=== PATIENT | female | born 1950 | race Caucasian/White ===

== ENCOUNTER 2020-01-27 08:07 | Outpatient (CLI) | payer MEDICARE, OTHER, SELFPAY ==
--- NOTE | ~2020-01-27 | MM_ITS ---
EXAMINATION: MM screening shaggy BI w dann HISTORY: Screening TECHNIQUE: Craniocaudal and mediolateral oblique 3-D tomosynthesis images were obtained and synthetic 2-D images were generated. CAD analysis was submitted and interpreted. COMPARISON: Comparison to multiple prior studies sequentially, with oldest reviewed study dated 04/2014. BREAST PARENCHYMAL COMPOSITION: There are scattered areas of fibroglandular density. FINDINGS: There is no evidence of suspicious mass, calcification, or architectural distortion to sugg est malignancy in either breast. There has been no suspicious interval change. IMPRESSION: 1. No mammographic evidence of malignancy. 2. Recommend routine screening mammography in one year. BI-RADS Category 1: Negative Reviewed, dictated and finalized at location A.
== END 2020-01-27 08:08 | disposition home or self-care (01) ==
LOC: ANHIMG 08:15
PROVIDERS: PCP Internal Medicine; Visit Provider Obstetrics & Gynecology Gynecology
DX: Z12.31 Encounter for screening mammogram for malignant neoplasm of breast (principal)
CPT/HCPCS: 77063; 77067

== ENCOUNTER → 2021-01-01 09:02 | Outpatient (CLI) | payer MEDICARE, OTHER, SELFPAY ==
--- NOTE | ~2021-01-01 | DEXA_ITS ---
Bone Density Report Name: Sameera Lima Age: 70 Sex: Female Ethnicity: White Date of : 1950 Indication: postmenopausal; screening for osteoporosis; Referring Provider: Abhishek, Vonnie Study: Bone densitometry was performed. Exam Date: January 01, 2021 Accession number: [id number] Bone Density: Region BMD T-score Z-score Classification AP Spine (L1-L4) 0.973 -0.7 1.6 Normal Femoral Neck (Left) 0.740 -1.0 0.9 Normal Total Hip (Left) 0.925 -0.1 1.5 Normal Femoral Neck (Right) 0.755 -0.8 1.1 Normal Total Hip (Right) 0.885 -0.5 1.2 Normal Total Hip Mean 0.905 -0.3 1.4 Normal World Health Organization criteria for BMD impression classify patients as: Normal (T-score at or above -1.0), Osteopenia (T-score between -1.0 and -2.5), or Osteoporosis (T-score at or below -2.5). 10-year Fracture Risk: FRAX not reported because: All T-scores for Spine Total, Hip Total, Femoral Neck at or above -1.0 Previous Exams: Region Exam Age BMD T-score BMD Change BMD Change Date g/cm2 vs Baseline vs Previous AP Spine(L1-L4) 01/01/2021 70 0.973 -0.7 -0.061* 0.010 12/30/2017 67 0.963 -0.8 -0.072* -0.043* 12/08/2013 63 1.005 -0.4 -0.029* 0.028* 10/31/2010 59 0.978 -0.6 -0.056* -0.025* 09/11/2007 56 1.002 -0.4 -0.032* -0.032* 08/30/2005 54 1.034 -0.1 Total Hip(Left) 01/01/2021 70 0.925 -0.1 -0.035* -0.001 12/30/2017 67 0.925 -0.1 -0.035* 0.009 12/08/2013 63 0.916 -0.2 -0.044* 0.032* 10/31/2010 59 0.884 -0.5 -0.077* -0.016 09/11/2007 56 0.900 -0.3 -0.061* -0.061* 08/30/2005 54 0.960 0.2 Total Hip(Right) 01/01/2021 70 0.885 -0.5 -0.069* -0.017 12/30/2017 67 0.902 -0.3 -0.052* -0.004 12/08/2013 63 0.906 -0.3 -0.048* 0.002 10/31/2010 59 0.904 -0.3 -0.050* -0.009 09/11/2007 56 0.913 -0.2 -0.041* -0.041* 08/30/2005 54 0.954 0.1 *Denotes significance at 95% confidence level, LSC for AP Spine = 0.022 g/cm2, LSC for Total Hip = 0.027 g/cm2 Clinical Information Provided by Patient: Has 3 or more alcoholic drinks per day Has used the following medications: Vitamin D Patient maximum height was 63 Menopause Age: 52 Does not regularly consume dairy products Drinks caffeinated beverages On
== END ==
PROVIDERS: PCP Internal Medicine; Visit Provider Nurse Practitioner
DX: Z78.0 Asymptomatic menopausal state (principal)
CPT/HCPCS: 77080

== ENCOUNTER 2021-01-18 09:16 | Outpatient (CLI) | payer MEDICARE, OTHER, SELFPAY ==
--- NOTE | ~2021-01-18 | MM_ITS ---
EXAMINATION: MM screening [facility] BI w dann HISTORY: Screening mammogram TECHNIQUE: Craniocaudal and mediolateral oblique 3-D tomosynthesis images were obtained and synthetic 2-D images were generated. CAD analysis was submitted and interpreted. COMPARISON: 01/27/2020, 01/07/2019, 01/30/2018, 12/20/2017 BREAST PARENCHYMAL COMPOSITION: There are scattered areas of fibroglandular density. FINDINGS: There is no evidence of suspicious mass, calcification, or architectural distortion to sugg est malignancy in either breast. There has been no suspicious interval change. IMPRESSION: 1. No mammographic evidence of malignancy. 2. Recommend routine screening mammography in one year. BI-RADS Category 1: Negative Reviewed, dictated and finalized at location A.
== END 2021-01-18 09:17 | disposition home or self-care (01) ==
PROVIDERS: PCP Internal Medicine; Visit Provider Obstetrics & Gynecology Gynecology
DX: Z12.31 Encounter for screening mammogram for malignant neoplasm of breast (principal)
CPT/HCPCS: 77063; 77067

== ENCOUNTER 2021-04-10 11:09 | Outpatient (CLI) | payer MEDICARE, SELFPAY ==
[2021-04-10 12:41] LABS: SARS-CoV-2 RNA PCR Positive (Negative)
== END 2021-04-10 11:10 | disposition home or self-care (01) ==
PROVIDERS: PCP Internal Medicine; Visit Provider Internal Medicine
DX: U07.1 COVID-19 (principal)
CPT/HCPCS: C9803; U0003; U0005

== ENCOUNTER 2021-04-13 08:30 | Emergency (ER) | payer MEDICARE, OTHER, SELFPAY ==
--- NOTE | ~2021-04-13 | XR_ITS ---
EXAMINATION: XR foot LT 2V DATE: 04/13/2021 09:33 INDICATION: Left foot injury. TECHNIQUE: 2 views of left foot were obtained. COMPARISON: None. FINDINGS: Bone alignment is normal. There is a nondisplaced comminuted fracture of base of fifth meta tarsal. There is moderate osteoarthritis of first metatarsophalangeal joint and mild osteoarthritis o f second metatarsophalangeal joint and many of the interphalangeal joints and midfoot joints. IMPRESSION: 1. Nondisplaced comminuted fracture of base of fifth metatarsal. 2. Polyarticular osteoarthritis. Reviewed, dictated and finalized at location A. WORKER
--- NOTE | ~2021-04-13 | XR_ITS ---
EXAMINATION: XR ankle LT 2V DATE: 04/13/2021 09:33 INDICATION: Left foot and ankle injury. TECHNIQUE: 2 views of left ankle were obtained. COMPARISON: Left foot radiographs 04/13/2021 FINDINGS: There is a nondisplaced comminuted fracture of base of fifth metatarsal. Joint spaces are n ormal. There are enthesophytes at the posterior and plantar aspects of calcaneal tuberosity. Ankle so ft tissue swelling is noted. IMPRESSION: 1. Nondisplaced comminuted fracture of base of fifth metatarsal. Reviewed, dictated and finalized at location A. [employer]
[2021-04-13 08:45] VITALS: BP 133/85; PULSE 86; RESP 16; TEMP 35.8; O2SAT 99
--- NOTE | 2021-04-13 09:46 | ED.LOWEXIN ---
HPI - Extremity Injury (Lower) General Chief Complaint: Extremity Injury, Lower Stated Complaint: Hurt foot Source: patient History of Present Illness HPI Narrative: this is 70-year-old female that presents with left foot injury with some bruising of the anterior foot after she misstepped in a pothole and twisting her foot and ankle causing bruising and pain this occurred about 5 days ago back pain is persistent has tried [id number] medications, currently pending are about 3/10 has good range of motion although tender with some mild swelling with no numbness or tingling. complaint: foot injury Onset (ago): day(s) Injury: Left: foot ( tender with bruising) Type of Injury: inversion Place: street/outdoors Severity: mild Severity scale (1-10): 3 Relieving factors: NSAID Exacerbating factors: weight bearing Context: walking Associated symptoms: swelling Related Data Home Medications Medication Instructions Recorded Confirmed bimatoprost 0.01 % eye drops 1 drop EACH EYE DAILY 05/27/19 04/13/21 cholecalciferol (vitamin D3) 25 25 mcg PO DAILY 05/27/19 04/13/21 mcg (1,000 unit) tablet fluticasone fur. 100 mcg-umeclid 1 inhalation INHALATION DAILY 05/27/19 04/13/21 62.5 mcg-vilant 25 mcg inhalat.powder multivitamin 1 tablet PO DAILY 05/27/19 04/13/21 vitamin B complex 1 tablet PO DAILY 05/27/19 04/13/21 vitamin E 200 unit capsule 200 unit PO DAILY 05/27/19 04/13/21 biotin 5 mg capsule 5 mg PO DAILY 11/11/19 04/13/21 atorvastatin 10 mg tablet 40 mg PO DAILY tablet 12/27/20 04/13/21 garlic 1,000 mg capsule 1,000 mg PO DAILY 12/27/20 04/13/21 magnesium 200 mg tablet 200 mg PO DAILY 12/27/20 04/13/21 Allergies Allergy/AdvReac Type Severity Reaction Status Date / Time No Known Allergies Allergy Verified 04/13/21 08:44 Review of Systems Review of Systems: All systems reviewed & are unremarkable except as noted in HPI and below PMFSH Past Medical History Medical History (Updated 04/13/21 @ 09:54 by Jeremias Diallo MD) Abnormal CT of the chest Asthma-COPD overlap syndrome Body mass index (BMI) 22.0-22.9, adult (11/03/18) Chronic obstructive pulmonary disease, unspecified Closed fracture of sternum with routine healing Cough Decreased white blood cell count, unspecified Disorders of bursae and tendons in shoulder region, unspecified Dorsalgia Elevated LFTs Essential (primary) hypertension Former smoker 20 years, quit 25 years ago, 1982, heavy second hand tobacco Herpes zoster without complication Hyponatremia Impingement syndrome of right shoulder Impingement syndrome, shoulder, left Lung granuloma Myalgia Other fatigue Other hyperlipidemia Pain in both upper arms Pain in left upper arm Pure hypercholesterolemia, unspecified Rhinitis Rhinitis SOB (shortness of breath) Strain of muscle(s) and tendon(s) of the rotator cuff of left shoulder, initial encounter Tear of left rotator cuff Tendonitis of both rotator cuffs Unspecified asthma Vitamin B 12 deficiency Surgical History Surgical History History of left cataract surgery History of tubal ligation Family History Family History Sibling Patient's sister is in good health Patient's sister is Diabetes mellitus Family history of emphysema Family history of congestive heart failure Mother Patient's mother is Social History Social History Smoking packs per day: 1 Smoking cigarettes per day: 20.0 Years smoked: 20 Smoking pack-years: 20.00 Smoking status: Former smoker (quit 1982) Second hand tobacco smoke exposure: No Smoking end date: 04/14/82 Alcohol intake: current Drinks per week: 20 Substance use: never Exam Const: General: no acute distress and alert Orientation/consciousness: patient oriented x3 HENM
[2021-04-13 09:59] VITALS: BP 158/95; PULSE 68; RESP 16; TEMP 36.4; O2SAT 96
== END 2021-04-13 10:05 | disposition home or self-care (01) ==
PROVIDERS: Emergency Provider Emergency Medicine; PCP Internal Medicine
DX: S92.902A Unspecified fracture of left foot, initial encounter for closed fracture (principal); J44.9 Chronic obstructive pulmonary disease, unspecified; I10 Essential (primary) hypertension; Z87.891 Personal history of nicotine dependence; E78.5 Hyperlipidemia, unspecified; E53.8 Deficiency of other specified B group vitamins
CPT/HCPCS: 73600; 73620; 99283; 99284

== ENCOUNTER 2021-04-18 15:07 | Outpatient (CLI) | payer MEDICARE, OTHER, SELFPAY ==
[2021-04-18 16:34] LABS: SARS-CoV-2 Ag Negative (Negative)
== END 2021-04-18 15:08 | disposition home or self-care (01) ==
LOC: CHSLAB 15:09
PROVIDERS: PCP Internal Medicine; Visit Provider Internal Medicine
DX: Z20.822 Contact with and (suspected) exposure to COVID-19 (principal)
CPT/HCPCS: 87426; C9803

== ENCOUNTER 2021-05-07 11:22 | Outpatient (CLI) | payer MEDICARE, OTHER, SELFPAY ==
--- NOTE | ~2021-05-07 | XR_ITS ---
XR foot LT min 3V DATE: 05/07/2021 11:41 INDICATION: Fifth metatarsal fracture TECHNIQUE: 4 views COMPARISON: 04/13/2021 left foot 04/20/2021 left foot FINDINGS: There is a mildly comminuted fracture of the base of the fifth metatarsal bone. There is a linear translucent fracture line with mild sclerosis of the apposing margins suggesting nonunion. Mild plantar and posterior calcaneal enthesopathy. Moderate osteoarthritis at the first metatarsophalangeal joint. There is osteoarthritic change at mul tiple interphalangeal joints. IMPRESSION: Continued radiographic follow-up is recommended to assess possible nonunion at the fractu re of the base of the fifth metatarsal bone Reviewed, dictated and finalized at location A. NG CEMENTER IMPRESSION: Continued radiographic follow-up is recommended to assess possible nonunion at the fracture of the base of the fifth metatarsal bone
== END 2021-05-07 11:23 | disposition home or self-care (01) ==
PROVIDERS: PCP Internal Medicine; Visit Provider Orthopaedic Surgery
DX: S92.352A Displaced fracture of fifth metatarsal bone, left foot, initial encounter for closed fracture (principal); X58.XXXA Exposure to other specified factors, initial encounter
CPT/HCPCS: 73630

== ENCOUNTER 2021-06-04 12:01 | Outpatient (CLI) | payer MEDICARE, OTHER, SELFPAY ==
--- NOTE | ~2021-06-04 | XR_ITS ---
XR foot LT min 3V 06/04/2021 12:16 Indication: Left foot pain. Patient fell in hole. Procedure: 4 views left foot Comparison: 05/07/2021 Findings: There is a stable transverse fracture base of the fifth metatarsal with incomplete osseous union. Lisfranc joint intact. There is mild-moderate osteoarthritis of the first metatarsophalangeal joint. 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 Reviewed, dictated and finalized at location B. URAL HISTORIAN Impression: 1: Stable alignment of transverse fracture base of the fifth metatarsal with no nunion.
== END 2021-06-04 12:02 | disposition home or self-care (01) ==
PROVIDERS: PCP Internal Medicine; Visit Provider Orthopaedic Surgery
DX: M79.672 Pain in left foot (principal)
CPT/HCPCS: 73630

== ENCOUNTER 2021-11-13 10:22 | Emergency (ER) | payer MEDICARE, OTHER, SELFPAY ==
--- NOTE | ~2021-11-13 | XR_ITS ---
XR foot LT min 3V DATE: 11/13/2021 10:51 INDICATION: Injury to second and third toes TECHNIQUE: 3 views COMPARISON: June 04, 2021 left foot FINDINGS: Mild plantar and minimal posterior calcaneal enthesopathy. Moderate osteoarthritis at first metatarsophalangeal joint. No fracture or dislocation, periosteal reaction or bone destruction. IMPRESSION: No fracture or dislocation detected Reviewed, dictated and finalized at location B.
--- NOTE | 2021-11-13 10:35 | ED.LOWEXIN ---
HPI - Extremity Injury (Lower) General Chief Complaint: Extremity Injury, Lower Stated Complaint: left foot pain hit steel bed frame Time Seen by Provider: 11/13/21 10:35 Source: patient Mode of arrival: ambulatory Limitations: no limitations History of Present Illness HPI Narrative: 70-year-old female with a history of COPD, hypertension, dyslipidemia, kicked her bed yesterday and sustained injury to her left foot. She has erythema of the base of 2nd and 3rd toes with decreased range of motion at the MP joint. No other injuries noted. Patient has a walking boot over her left foot from a prior surgery MD complaint: foot injury Onset (ago): day(s) ( One day ago) Injury: Left: foot Type of Injury: blunt Place: home Severity: mild Relieving factors: nothing Exacerbating factors: nothing Context: direct blow Other symptoms: none Treatments prior to arrival: cold therapy Related Data Home Medications Medication Instructions Recorded Confirmed bimatoprost 0.01 % eye drops 1 drop ophthalmic (eye) DAILY 05/27/19 11/13/21 (Patricia) cholecalciferol (vitamin D3) 25 25 mcg PO DAILY 05/27/19 11/13/21 mcg (1,000 unit) tablet (Vitamin D3) fluticasone fur. 100 mcg-umeclid 1 inhalation inhalation DAILY 05/27/19 11/13/21 62.5 mcg-vilant 25 mcg inhalat.powder (Trelegy Ellipta) multivitamin (Multiple Vitamins 1 tablet PO DAILY 05/27/19 11/13/21 tablet) vitamin B complex (B 1 tablet PO DAILY 05/27/19 11/13/21 Complex-Vitamin B12 tablet) vitamin E 200 unit capsule 200 unit PO DAILY 05/27/19 11/13/21 biotin 5 mg capsule 5 mg PO DAILY 11/11/19 11/13/21 atorvastatin 10 mg tablet 40 mg PO DAILY 12/27/20 11/13/21 garlic 1,000 mg capsule 1,000 mg PO DAILY 12/27/20 11/13/21 magnesium 200 mg tablet 200 mg PO DAILY 12/27/20 11/13/21 amlodipine 1 tablet PO DAILY 05/03/21 11/13/21 ascorbate calcium (vitamin C) 500 500 mg PO DAILY 05/03/21 11/13/21 mg tablet Allergies Allergy/AdvReac Type Severity Reaction Status Date / Time No Known Allergies Allergy Verified 11/13/21 10:40 Review of Systems Review of Systems: All systems reviewed & are unremarkable except as noted in HPI and below Constitutional: Constitutional: Reports as per HPI and Reports no additional constitutional complaints Eyes: Eyes: Reports as per HPI and Reports no additional eye complaints ENT: Reports system reviewed and no additional complaints, except as documented and Reports as per HPI Cardiovascular: Cardiovascular: Reports as per HPI and Reports no additional cardiovascular complaints Respiratory: Respiratory: Reports as per HPI, Reports cough and Reports dyspnea Gastrointestinal: Gastrointestinal: Reports as per HPI and Reports no additional gastrointestinal complaints Genitourinary: Genitourinary: Reports no additional female genitourinary complaints and Reports as per HPI Musculoskeletal: Musculoskeletal: Reports no additional musculoskeletal complaints and Reports as per HPI Comments: left foot pain Integumentary/Breasts: Skin/Breast: Reports system reviewed and no additional complaints, except as docu and Reports as per HPI Neurologic: Reports system reviewed and no additional complaints, except as documented and Reports as per HPI Psychiatric: Psychiatric: Reports no additional psychiatric complaints and Reports as per HPI Endocrine: Endocrine: Reports no additional endocrine complaints and Reports as per HPI Hematologic/Lymphatic: Hematologic/Lymphatic: Reports no additional hematologic/lymphatic complaints and Reports as per HPI Allergic/Immunologic: Allergic/Immunologic: Reports no additional allergic/immunologic complaints and Reports as per HPI PENDING SALE TO [facility] Past Medical History Medical History Abnormal CT of the chest Asthma-COPD overlap syndrome Body mass index (BMI) 22.0-22.9, adult (11/03/18) Chronic obstructive pulmonary disease, unspecified Closed fracture of sternu
[2021-11-13 10:36] VITALS: BP 157/85; PULSE 73; RESP 16; TEMP 36.4; O2SAT 98
[2021-11-13 12:02] VITALS: BP 152/82; PULSE 75; RESP 17; TEMP 36.8; O2SAT 100
== END 2021-11-13 12:04 | disposition home or self-care (01) ==
PROVIDERS: Emergency Provider Internal Medicine Critical Care Medicine; PCP Internal Medicine
DX: M79.672 Pain in left foot (principal); I10 Essential (primary) hypertension; E78.5 Hyperlipidemia, unspecified; Z87.891 Personal history of nicotine dependence
CPT/HCPCS: 73630; 99283

== ENCOUNTER → 2022-01-29 08:25 | Outpatient (CLI) | payer MEDICARE, OTHER, SELFPAY ==
--- NOTE | ~2022-01-29 | MM_ITS ---
EXAMINATION: MM screening shaggy BI w dann HISTORY: Screening TECHNIQUE: Craniocaudal and mediolateral oblique 3-D tomosynthesis images were obtained and synthetic 2-D images were generated. CAD analysis was submitted and interpreted. COMPARISON: Comparison to multiple prior studies sequentially, with oldest reviewed study dated 12/26. BREAST PARENCHYMAL COMPOSITION: There are scattered areas of fibroglandular density. FINDINGS: There is no evidence of suspicious mass, calcification, or architectural distortion to sugg est malignancy in either breast. There has been no suspicious interval change. IMPRESSION: 1. No mammographic evidence of malignancy. 2. Recommend routine screening mammography in one year. BI-RADS Category 1: Negative Reviewed, dictated and finalized at location A.
== END ==
PROVIDERS: PCP Internal Medicine; Visit Provider Obstetrics & Gynecology Gynecology
DX: Z12.31 Encounter for screening mammogram for malignant neoplasm of breast (principal)
CPT/HCPCS: 77063; 77067

== ENCOUNTER 2022-03-13 01:41 | Day surgery (SDC) | payer MEDICARE, SELFPAY ==
[2022-02-27 15:35] VITALS: BMI 21.4
[2022-03-13 06:45] VITALS: BP 150/83; PULSE 85; RESP 18; TEMP 36.2; O2SAT 96
[2022-03-13] MEDS: LACTATED RINGERS 1,000 ML 150 ML IV CONT (06:58)
--- NOTE | 2022-03-13 07:39 | WPDANESEPPF ---
Anes - Initial Pre Proc Eval Procedure: Operation Date: 03/13/22 08:00 Proposed Procedures p Screening Colonoscopy - Bhupendra Ferro MD Date/Time: 03/13/22 07:39 Surgeon: Bhupendra Ferro MD Pre Op Diagnosis: hx colon polyps Patient Data Age: 71 Gender: F Height: 1.6 m Weight: 51.4 kg Last Vital Signs Temp 36.2 C L 03/13/22 06:45 Pulse 85 03/13/22 06:45 Resp 18 03/13/22 06:45 BP 150/83 H 03/13/22 06:45 Pulse Ox 96 03/13/22 06:45 O2 Del Method Room Air 03/13/22 06:45 Allergies Allergy/AdvReac Type Severity Reaction Status Date / Time No Known Allergies Allergy Verified 03/13/22 06:34 Home Medications Medication Instructions Recorded Confirmed Type bimatoprost 0.01 % eye drops 1 drop ophthalmic (eye) DAILY 05/27/19 02/27/22 History (Anjanaigan) cholecalciferol (vitamin D3) 25 25 mcg PO DAILY 05/27/19 02/27/22 History mcg (1,000 unit) tablet (Vitamin D3) fluticasone fur. 100 mcg-umeclid 1 inhalation inhalation DAILY PRN 05/27/19 02/27/22 History 62.5 mcg-vilant 25 mcg other inhalat.powder (Trelegy Ellipta) multivitamin (Multiple Vitamins 1 tablet PO DAILY 05/27/19 02/27/22 History tablet) vitamin B complex (B 1 tablet PO DAILY 05/27/19 02/27/22 History Complex-Vitamin B12 tablet) vitamin E 200 unit capsule 200 unit PO DAILY 05/27/19 02/27/22 History biotin 5 mg capsule 5 mg PO DAILY 11/11/19 02/27/22 History atorvastatin 10 mg tablet 40 mg PO DAILY 12/27/20 02/27/22 History garlic 1,000 mg capsule 1,000 mg PO DAILY 12/27/20 02/27/22 History magnesium 200 mg tablet 200 mg PO EVERY OTHER DAY 12/27/20 02/27/22 History lisinopril 40 mg tablet 40 mg PO DAILY #90 tabs 12/28/20 02/27/22 Rx amlodipine 1 tablet PO DAILY 05/03/21 02/27/22 History ascorbate calcium (vitamin C) 500 500 mg PO DAILY 05/03/21 02/27/22 History mg tablet albuterol sulfate 90 mcg/actuation 1 inh inhalation Q4H PRN shortness 05/31/21 02/27/22 Rx aerosol inhaler of breath or wheezing 1 month #8.5 grams benzonatate 100 mg capsule 100 mg PO TID PRN cough #30 caps 02/18/22 02/27/22 Rx aspirin 325 mg tablet 325 mg PO EVERY OTHER DAY 02/27/22 02/27/22 History montelukast 10 mg tablet 10 mg PO DAILY 02/27/22 02/27/22 History Patient hx anesthesia problems: none Family hx anesthesia problems: none Results Review: All pre-operative results and documents have been reviewed as part of the pre-operative evaluation. [facility] Past Medical History Medical History Abnormal CT of the chest Asthma-COPD overlap syndrome Body mass index (BMI) 22.0-22.9, adult (11/03/18) Chronic obstructive pulmonary disease, unspecified Closed fracture of sternum with routine healing Cough Decreased white blood cell count, unspecified Diarrhea Disorders of bursae and tendons in shoulder region, unspecified Dorsalgia Elevated LFTs Essential (primary) hypertension Former smoker 20 years, quit 25 years ago, 1982, heavy second hand tobacco Fracture of fifth metatarsal bone of left foot Herpes zoster without complication HTN (hypertension) Hyponatremia Impingement syndrome of right shoulder Impingement syndrome, shoulder, left Lung granuloma Myalgia Other fatigue Other hyperlipidemia Pain in both upper arms Pain in left upper arm Pure hypercholesterolemia, unspecified Rhinitis Rhinitis SOB (shortness of breath) SOB (shortness of breath) on exertion Strain of muscle(s) and tendon(s) of the rotator cuff of left shoulder, initial encounter Tear of left rotator cuff Tendonitis of both rotator cuffs Unspecified asthma Vitamin B 12 deficiency Surgical History Surgical History History of left cataract surgery History of tubal ligation Family History Family History Sibling Patient's sister is in good health Patient's
--- NOTE | 2022-03-13 08:00 | PM.HPGS ---
History of Present Illness History of Present Illness Consent: Risks, benefits, and alternatives have been discussed and questions answered. Patient agrees to proceed with procedure. Chief complaint: hx colon polyps Narrative: Maribel Lima is a 71 year old female with colon polyp 5 years ago Review of Systems Constitutional: Constitutional: Denies headache(s) and Denies weakness Eyes: Eyes: Denies blurry vision ENT: Reports Normal hearing present, Denies headache(s) and Denies neck pain Cardiovascular: Cardiovascular: Denies chest pain and Denies dyspnea Respiratory: Respiratory: Denies dyspnea Gastrointestinal: Gastrointestinal: Reports no additional gastrointestinal complaints Genitourinary: Genitourinary: Denies dysuria Musculoskeletal: Musculoskeletal: Denies neck pain Integumentary/Breasts: Skin/Breast: Denies dry skin Neurologic: Reports Normal hearing present, Denies headache(s) and Denies weakness Psychiatric: Psychiatric: Denies anxiety Endocrine: Endocrine: Denies change in body appearance Hematologic/Lymphatic: Hematologic/Lymphatic: Denies easy bleeding Allergic/Immunologic: Allergic/Immunologic: Denies urticaria PMFSH Past Medical History Medical History (Updated 03/13/22 @ 08:01 by Bhupendra Ferro MD) Abnormal CT of the chest Asthma-COPD overlap syndrome Body mass index (BMI) 22.0-22.9, adult (11/03/18) Chronic obstructive pulmonary disease, unspecified Closed fracture of sternum with routine healing Colon polyp Cough Decreased white blood cell count, unspecified Diarrhea Disorders of bursae and tendons in shoulder region, unspecified Dorsalgia Elevated LFTs Essential (primary) hypertension Former smoker 20 years, quit 25 years ago, 1982, heavy second hand tobacco Fracture of fifth metatarsal bone of left foot Herpes zoster without complication HTN (hypertension) Hyponatremia Impingement syndrome of right shoulder Impingement syndrome, shoulder, left Lung granuloma Myalgia Other fatigue Other hyperlipidemia Pain in both upper arms Pain in left upper arm Pure hypercholesterolemia, unspecified Rhinitis Rhinitis SOB (shortness of breath) SOB (shortness of breath) on exertion Strain of muscle(s) and tendon(s) of the rotator cuff of left shoulder, initial encounter Tear of left rotator cuff Tendonitis of both rotator cuffs Unspecified asthma Vitamin B 12 deficiency Surgical History Surgical History History of left cataract surgery History of tubal ligation Family History Family History Sibling Patient's sister is in good health Patient's sister is Diabetes mellitus Family history of emphysema Family history of congestive heart failure Mother Patient's mother is Other Hypertension Social History Social History (Updated 02/27/22 @ 08:43 by Rashard Grant MA) Smoking packs per day: 1 Smoking cigarettes per day: 20.0 Years smoked: 20 Smoking pack-years: 20.00 Smoking status: Former smoker Tobacco type: cigarettes Second hand tobacco smoke exposure: No Smoking end date: 04/14/82 Alcohol intake: current Drinks per week: 12 Substance use: never Substance use type: does not use Lack of Transportation: No Lack of Food: Never True Current Housing: I Have Housing Concerned About Future Housing: No Difficulty Paying Gas/Electric Bills: No Difficulty Paying for Meds: No Currently Unemployed: Decline to Answer Education: Decline to Answer Difficulty w/ Childcare or Family Care: Decline to Answer Living arrangements: alone Additional occupation/education comments: 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 Gender identity (if verbalized by the patient): Female Spiritual care concerns: No Meds Home Medications and Allergies Home Medicati
[2022-03-13 08:25] VITALS: BP 129/80; PULSE 87; RESP 24; O2SAT 100
[2022-03-13 08:35] VITALS: BP 149/99; PULSE 75; RESP 20; O2SAT 100
[2022-03-13 08:45] VITALS: BP 153/81; PULSE 77; RESP 19; O2SAT 99
== END 2022-03-13 08:50 | disposition home or self-care (01) ==
PROVIDERS: PCP Internal Medicine; Referring Provider Obstetrics & Gynecology Gynecology; Visit Provider Internal Medicine Gastroenterology
PROC: 0DJD8ZZ Inspection of Lower Intestinal Tract, Via Natural or Artificial Opening Endoscopic (ICD-10-PCS; CPT 45378; principal; 2022-03-13 08:00)
DX: Z12.11 Encounter for screening for malignant neoplasm of colon (principal); K57.30 Diverticulosis of large intestine without perforation or abscess without bleeding; K64.8 Other hemorrhoids; Z86.010 Personal history of colon polyps; I10 Essential (primary) hypertension; J44.9 Chronic obstructive pulmonary disease, unspecified; E78.2 Mixed hyperlipidemia; E53.8 Deficiency of other specified B group vitamins; Z87.891 Personal history of nicotine dependence; Z79.51 Long term (current) use of inhaled steroids; Z79.82 Long term (current) use of aspirin
CPT/HCPCS: G0105; J2704; J7120

== ENCOUNTER → 2023-01-30 07:04 | Outpatient (CLI) | payer MEDICARE, OTHER, SELFPAY ==
--- NOTE | ~2023-01-30 | MM_ITS ---
EXAMINATION: MM screening shaggy BI w dann HISTORY: Screening TECHNIQUE: Craniocaudal and mediolateral oblique 3-D tomosynthesis images were obtained and synthetic 2-D images were generated. CAD analysis was submitted and interpreted. COMPARISON: Comparison to multiple prior studies sequentially, with oldest reviewed study dated 12/30. BREAST PARENCHYMAL COMPOSITION: There are scattered areas of fibroglandular density. FINDINGS: There is no evidence of suspicious mass, calcification, or architectural distortion to sugg est malignancy in either breast. There has been no suspicious interval change. IMPRESSION: 1. No mammographic evidence of malignancy. 2. Recommend routine screening mammography in one year. BI-RADS Category 1: Negative Reviewed, dictated and finalized at location A.
== END ==
PROVIDERS: PCP Internal Medicine; Visit Provider Obstetrics & Gynecology Gynecology
DX: Z12.31 Encounter for screening mammogram for malignant neoplasm of breast (principal)
CPT/HCPCS: 77063; 77067

== ENCOUNTER 2024-02-12 07:17 | Outpatient (CLI) | payer MEDICARE, OTHER, SELFPAY ==
--- NOTE | ~2024-02-12 | MM_ITS ---
EXAMINATION: MM screening shaggy BI w dann HISTORY: Screening mammogram TECHNIQUE: Craniocaudal and mediolateral oblique 3-D tomosynthesis images were obtained and synthetic 2-D images were generated. CAD analysis was submitted and interpreted. COMPARISON: 01/30/2023, 01/29/2022, 01/18/2021, 01/27/2020 BREAST PARENCHYMAL COMPOSITION:Dense: The breasts are heterogeneously dense, which may obscure small masses. FINDINGS: No suspicious mass, calcification, or architectural distortion are identified in either kathi ast to suggest malignancy. There has been no suspicious interval change. IMPRESSION: No mammographic evidence of malignancy. Recommend routine screening mammography in one year. BI-RADS Category 1: Negative Reviewed, dictated and finalized at location .
== END 2024-02-12 07:18 | disposition home or self-care (01) ==
PROVIDERS: PCP Internal Medicine; Visit Provider Nurse Practitioner
DX: Z12.31 Encounter for screening mammogram for malignant neoplasm of breast (principal)
CPT/HCPCS: 77063; 77067

== ENCOUNTER 2024-07-19 12:53 | Outpatient (CLI) | payer MEDICARE, SELFPAY ==
--- NOTE | ~2024-07-19 | XR_ITS ---
Right Shoulder Technique: AP and scapular Y views were obtained. Clinical History: Pain Findings: No fracture or dislocation is seen. Osseous alignment is anatomic. The glenohumeral and acr omioclavicular joint spaces are preserved. Soft tissues are unremarkable. Impression: Unremarkable right shoulder radiographs. Reviewed, dictated and finalized at [facility]. Impression: Unremarkable right shoulder radiographs.
--- OUTSIDE RECORDS SUMMARY | 2024-07-19 14:39 | XMS_ITS | Clinical Summary ---
Author Organization [facility] Address [facility] [place] [address] Care Team Providers Care Personnel Clerk Name Role Phone Unavailable Primary Care Provider Unavailabl e Social History Tobacco Use Types Packs/Day Years Used Date Smoking Tobacco: Never Assessed Comments Unknown Sex and Gender Information Value Date Recorded Sex Assigned at Not on file Legal Sex Female 8:34 PM CDT Gender Identity Not on file Sexual Orientation Not on file Plan of Treatment Health Maintenance Due Date Last Done Comments Colorectal Cancer Screening Colonoscopy (10 Years) 1950 Hepatitis C 1966 DTaP, Tdap and Td Vaccines ( 1 - Tdap) 11/25/1967 Zoster Vaccines (1 of 2) 1998 Dexa Scan (General) 2013 Pneumococcal Vaccine: 65+ Ye ars (1 of 1 - PCV) 2013 RSV Immunization or 60+ Years (1 - 1-dose 75+ series) 11/25/2023 COVID-19 Vaccine ( - 2023-2 5 season) 2023 Meningococcal B Vaccine Aged Out No l onger eligible based on patient's age to complete this topic Meningococcal Vaccine Aged Out No kim devyn eligible based on patient's age to complete this topic RSV Immunizations Under 20 Months Aged Out No longer eligible based on patient's age to complete this topic
== END 2024-07-19 12:54 | disposition home or self-care (01) ==
PROVIDERS: PCP Internal Medicine; Visit Provider Internal Medicine
DX: M25.511 Pain in right shoulder (principal)
CPT/HCPCS: 73030

== ENCOUNTER 2024-09-18 07:45 | Outpatient (CLI) | payer MEDICARE, SELFPAY ==
--- NOTE | ~2024-09-18 | MR_ITS ---
MRI of the lumbar spine Clinical History: Back pain Technique: Axial T2-weighted images, and sagittal T1-weighted, T2-weighted, and T2 fat-sat images wer e acquired. Findings: No acute fracture identified. There is 4 mm anterolisthesis of L4 over L5. There is 3 mm an terolisthesis of L3 over L4. There is type I Modic changes about the L2-L3 and L5-S1 disc spaces. At L1-L2, there is advanced degenerative disc narrowing. There is minimal disc bulge. No spinal canal stenosis or definite neural foraminal narrowing. At L2-L3, there is moderate degenerative distended. There is minimal disc bulge. No spinal canal sten osis. There is moderate to advanced left neural foraminal narrowing. Right neural foramen preserved. At L3-L4, there is mild degenerative disc narrowing. There is mild diffuse disc bulge and severe face t arthropathy. No central canal stenosis. There is mild to moderate left neural foraminal narrowing. Right neural foramen preserved. At L4-L5, there is mild disc bulge with advanced facet arthropathy. No central canal stenosis. There is mild bilateral neural foraminal narrowing. At L5-S1, there is mild disc bulge with advanced facet arthropathy. No central canal stenosis. There is mild to moderate right neural foraminal narrowing. Left neural foramen preserved. Paravertebral soft tissues are unremarkable. Impression: Moderate degenerative spondylosis overall, as detailed above. 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 Reviewed, dictated and finalized at [facility]. Impression: Moderate degenerative spondylosis overall, as detailed above. 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
== END 2024-09-18 07:46 | disposition home or self-care (01) ==
LOC: CHSIMG 07:47
PROVIDERS: PCP Internal Medicine; Visit Provider Physical Medicine & Rehabilitation Pain Medicine
DX: M54.50 Low back pain, unspecified (principal); M43.06 Spondylolysis, lumbar region
CPT/HCPCS: 72148

== ENCOUNTER 2024-11-05 14:07 | Outpatient (CLI) | payer MEDICARE, SELFPAY ==
--- NOTE | ~2024-11-05 | XR_ITS ---
EXAM/PROCEDURE: XR chest 2V - 11/05/2024 14:50 CDT HISTORY: 73 years old Female with pre-op TECHNIQUE: Two view(s) of the chest. COMPARISON: None available. FINDINGS: LUNGS/ PLEURA: No focal consolidation. No appreciable pneumothorax or large pleural effusion. HEART/ MEDIASTINUM: Heart appears normal in size. BONES: Degenerative changes. Status post ORIF of this sternum. Mild levoscoliosis. OTHER: Visualized upper abdomen is unremarkable. IMPRESSION: No acute process. Reviewed, dictated and finalized at location A. IMPRESSION: No acute process.
--- OUTSIDE RECORDS SUMMARY | 2024-11-05 14:20 | XMS_ITS | Clinical Summary ---
Author Organization [facility] Address [facility] [place] [address] Care Team Providers Care Demand Generator Manager Name Role Phone Unavailable Primary Care Provider [...] Td Vaccines ( 1 - Tdap) 11/25/1967 Pneumococcal Vaccine: 50+ Ye ars (1 of 1 - PCV) 1998 Zoster Vaccines (1 of 2) 1998 Dexa Scan (General) 2013 RSV Immunization or 60+ Years (1 [...]
== END 2024-11-05 14:08 | disposition home or self-care (01) ==
PROVIDERS: PCP Internal Medicine; Visit Provider Internal Medicine Critical Care Medicine
DX: J44.9 Chronic obstructive pulmonary disease, unspecified (principal); Z01.818 Encounter for other preprocedural examination
CPT/HCPCS: 71046

== ENCOUNTER 2025-02-14 07:13 | Outpatient (CLI) | payer MEDICARE, SELFPAY ==
--- NOTE | ~2025-02-14 | MM_ITS ---
EXAMINATION: screening [facility] BI w dann INDICATION: Asymptomatic, referred for screening mammogram COMPARISON: 02/12/2024 through 01/27/2020 TECHNIQUE: Digital Breast Tomosynthesis CC, MLO views of Both breasts were obtained with computer-aided detection to assist in interpretation of the study. FINDINGS: There are scattered areas of fibroglandular density. There is an asymmetry seen on the MLO view in the Superior left breast in middle third. Elsewhere, there are no mammographic features of malignancy. IMPRESSION: 1. Left breast Asymmetry. 2. No evidence of malignancy in the Right breast. RECOMMENDATION: Left breast Diagnostic mammogram with true lateral, appropriate spot compression views and an ultrasound if needed. BI-RADS Category 0: Incomplete: Needs additional imaging evaluation. Reviewed, dictated and finalized at location B. ON OPERATOR IMPRESSION: 1. Left breast Asymmetry. 2. No evidence of malignancy in the Right breast. RECOMMENDATION: Left breast Diagnostic mammogram with true lateral, appropriate spot compressio n views and an ultrasound if needed. BI-RADS Category 0: Incomplete: Needs additional imaging evaluation.
== END 2025-02-14 07:14 | disposition home or self-care (01) ==
LOC: MICIMG 07:13
PROVIDERS: PCP Internal Medicine; Visit Provider Obstetrics & Gynecology Gynecology
DX: Z12.31 Encounter for screening mammogram for malignant neoplasm of breast (principal); R92.8 Other abnormal and inconclusive findings on diagnostic imaging of breast
CPT/HCPCS: 77063; 77067